=== PATIENT | female | born 1945 | race Two or more races ===

== ENCOUNTER 2022-01-25 23:08 | Inpatient (IN) | payer MEDICARE, OTHER ==
[~2022-01-25] VITALS: Ht 172.7 cm; Wt 71.7 kg
[2022-01-26 00:12] LABS: HEMATOCRIT 33.7 % (31.2-41.9); MEAN CORPUSCULAR HEMOGLOBIN 30.9 uug (24.7-32.8); MEAN CORPUSCULAR VOLUME 90.1 fL (75.5-95.3); PLATELET COUNT (AUTO) 187 K/uL (179-408)
[2022-01-26 00:25] LABS: CARBON DIOXIDE 26 mmol/L (21-32); CHLORIDE 108 mmol/L (98-107); CREATININE 0.8 mg/dL (0.6-1.3); GLUCOSE 106 mg/dL (74-106); UREA NITROGEN, BLOOD 25 mg/dL (7-18)
[2022-01-26 00:30] LABS: ETHANOL < 3 MG/DL (0-0)
[2022-01-26 00:33] LABS: ALANINE AMINOTRANSFERASE 23 U/L (14-59); ALKALINE PHOSPHATASE 89 U/L (50-136); ASPARTATE AMINOTRANSFERASE 13 U/L (15-37); BILIRUBIN,DIRECT 0.1 mg/dL (0.0-0.2); BILIRUBIN,TOTAL 0.6 mg/dL (0.2-1.0); TOTAL PROTEIN, SERUM 6.6 g/dL (6.4-8.2)
[2022-01-26] MEDS ORDERED: ASPIRIN 81 MG TAB.CHEW ONE (01:30)
[2022-01-26] MEDS: ASPIRIN 81 MG TAB.CHEW PO ONE (01:32)
[2022-01-26 03:21] LABS: *BILIRUBIN,URIN NEGATIVE (NEGATIVE); *BLOOD, URINE 2+ (NEGATIVE); *CLARITY,URINE CLEAR (CLEAR); *COLOR,URINE YELLOW (YELLOW); *KETONES,URINE NEGATIVE (NEGATIVE); *UROBILINOGEN,URINE 0.2 E.U./dl (NORMAL); LEUKOCYTE ESTERASE ,URINE NEGATIVE (NEGATIVE); NITRITE, URINE NEGATIVE (NEGATIVE); PH,URINE 5.5 (5.0-8.0); UGLUCOSE NEGATIVE (NEGATIVE)
[2022-01-26 03:36] LABS: BACTERIA,URINE NONE SEEN /HPF (NONE SEEN); SQUAMOUS EPITHELIAL CELL,UR FEW /HPF (NONE SEEN); WBC,URINE 0-3 /HPF (0-3)
[2022-01-26] MEDS ORDERED: ACETAMINOPHEN 325 MG TABLET PO PRN (04:15)
[2022-01-26] MEDS ORDERED: ONDANSETRON 4 MG/2 ML VIAL IV PRN (04:15)
[2022-01-26] MEDS ORDERED: REMEDY ESSENTIAL ZINC PASTE 113 GM TP PRN (04:15)
[2022-01-26] MEDS ORDERED: MAGNESIUM HYDROXIDE 30 ML LIQUID UDC PO PRN (04:15)
[2022-01-26] MEDS ORDERED: ROSU10TA29 PO (05:16)
[2022-01-26] MEDS ORDERED: IRBE150T28 PO ×2 (05:16)
[2022-01-26] MEDS ORDERED: FAMO20TA8 PO (05:16)
[2022-01-26] MEDS ORDERED: CAPT50TA3 PO (05:16)
[2022-01-26] MEDS ORDERED: BUDE10.2 INH ×2 (05:16→05:59)
[2022-01-26] MEDS ORDERED: LEVO88TA5 PO (05:16)
[2022-01-26] MEDS ORDERED: ALBU8HFA4 INH (05:59)
[2022-01-26 06:02] VITALS: BP 144/49
[2022-01-26] MEDS: PANTOPRAZOLE SODIUM 40 MG TABLET.DR PO SCH (06:45)
[2022-01-26] MEDS: ASPIRIN 81 MG TAB.CHEW PO SCH (09:23)
[2022-01-26 12:06] VITALS: BP 111/43
[2022-01-26] MEDS ORDERED: ALBUTEROL SULFATE 2.5 MG/3 ML NEBU NEB PRN (12:30)
[2022-01-26] MEDS ORDERED: FAMOTIDINE 20 MG TABLET PO SCH (17:00)
[2022-01-26] MEDS ORDERED: AMLO5TAB4 PO (17:53)
[2022-01-26] MEDS ORDERED: ATORVASTATIN 40 MG TABLET PO SCH (21:00)
[2022-01-27] MEDS ORDERED: LEVOTHYROXINE SODIUM 88 MCG TABLET PO SCH (07:00)
[2022-01-27] MEDS ORDERED: FLUTICASONE/VILANTEROL 1 EACH BLST.W.DEV INH SCH (09:00)
[2022-01-27] MEDS ORDERED: LISINOPRIL 10 MG TABLET PO SCH (09:00)
== END 2022-01-26 16:22 | disposition home or self-care (01) | DRG 293 ==
LOC: ER 01-26 00:27 → TELE3 01-26 03:40
PROVIDERS: ADMIT Student in an Organized Health Care Education/Training Program; ATTEND Nurse Practitioner Acute Care
DX: I11.0 Hypertensive heart disease with heart failure (principal); I50.32 Chronic diastolic (congestive) heart failure; E03.9 Hypothyroidism, unspecified; J45.909 Unspecified asthma, uncomplicated; K29.70 Gastritis, unspecified, without bleeding; R51.9 Headache, unspecified; R42 Dizziness and giddiness; Z91.041 Radiographic dye allergy status; Z20.822 Contact with and (suspected) exposure to COVID-19; Z90.49 Acquired absence of other specified parts of digestive tract; Z80.52 Family history of malignant neoplasm of bladder; Z82.49 Family history of ischemic heart disease and other diseases of the circulatory system; Z79.890 Hormone replacement therapy; Z79.899 Other long term (current) drug therapy
CPT/HCPCS: 36415; 70450; 71045; 84484; 85025; 85651; 93005; 93307; A4663; G0378; G0480